=== PATIENT | female | born 1960 | race Caucasian/White ===

== ENCOUNTER 2018-05-24 20:18 | Emergency (ER) | payer SELFPAY ==
[~2018-05-24] VITALS: Ht 157.5 cm; Wt 76.8 kg
[2018-05-24] MEDS ORDERED: ACETAMINOPHEN 500 MG TABLET ONE (20:23)
--- NOTE | 2018-05-24 20:26 | NUR ---
PITA RN: PT MEDICATED PER EMAR FOR FEVER IN TRIAGE.
[2018-05-24] MEDS ORDERED: ACETAMINOPHEN 500 MG TABLET PO ONE (20:30)
[2018-05-24 21:43] LABS: ALANINE AMINOTRANSFERASE 46 U/L (12-78); ALBUMIN 3.5 g/dL (3.4-5.0); ANION GAP 7 mmol/L (5-15); CALCIUM 8.3 mg/dL (8.5-10.1); CHLORIDE 103 mmol/L (98-107); CREATININE 0.81 mg/dL (0.55-1.02)
--- NOTE | 2018-05-24 21:43 | NUR ---
MEAT SCRUBBER: REPEAT VS OBTAINED. IMPROVEMENT IN TEMP NOTED. PT REPORTS "FEELING MUCH BETTER"
[2018-05-24 21:45] LABS: ALKALINE PHOSPHATASE 103 U/L (45-117); BILIRUBIN,TOTAL 0.9 mg/dL (0.2-1.0); TOTAL PROTEIN 8.6 g/dL (6.4-8.2)
[2018-05-24 22:00] LABS: MD YES; MEAN CORPUSCULAR HEMOGLOBIN 29.9 pg (27.0-34.8); MEAN CORPUSCULAR HGB CONC 33.7 g/dL (32.4-35.8); MEAN CORPUSCULAR VOLUME 88.7 fL (80-100); MEAN PLATELET VOLUME 7.8 fL (7.4-10.4); PLATELET COUNT 179 x10^3/uL (130-400); RED BLOOD COUNT 4.79 x10^6/uL (3.82-5.3); RED CELL DISTRIBUTION WIDTH 13.4 % (9.6-15.2)
[2018-05-24 22:02] LABS: <RBC MORPHOLOGY> NORMAL; BAND#(MANUAL) 0.88 x10^3/uL; BANDS%(MANUAL) 7 % (0-7); LYMPH#(MANUAL) 1.51 x10^3/uL (1-3.4); LYMPHS% (MANUAL) 12 % (22-44); MONOS#(MANUAL) 0.25 x10^3/uL (0.3-2.7); MONOS% (MANUAL) 2 % (2-9); SEG#(MANUAL) 9.95 x10^3/uL (1.8-6.8); SEGS% (MANUAL) 79 % (42-75)
[2018-05-24 22:03] LABS: <PLATELET ESTIMATE> ADEQUATE; <PLT MORPHOLOGY> NORMAL PLT MORPH
--- NOTE | 2018-05-24 23:34 | NUR ---
PT TO ROOM
[2018-05-25 00:18] LABS: CULTURE INDICATED? YES; MICROSCOPIC INDICATED
[2018-05-25 00:47] LABS: RAPID INFLUENZA A Negative (Negative); RAPID INFLUENZA B Negative (Negative)
[2018-05-25 00:58] VITALS: BP 120/75
[2018-05-25] MEDS ORDERED: LEVO25TA4 PO (01:40)
== END 2018-05-25 01:36 | disposition home or self-care (01) ==
LOC: ED 05-25 00:19
DX: J18.1 Lobar pneumonia, unspecified organism (principal); H18.9 Unspecified disorder of cornea; J00 Acute nasopharyngitis [common cold]
CPT/HCPCS: 36415; 71046; 71250; 80053; 81001; 83605; 84145; 85025; 87040; 87086; 87400; 99284